=== PATIENT | female | born 1965 | race Caucasian/White ===

== ENCOUNTER 2018-04-24 00:29 | Emergency (ER) | payer SELFPAY ==
[~2018-04-24] VITALS: Ht 172.7 cm; Wt 59.5 kg
[~2018-04-24 00:29] MED LIST: DILA4TAB10 PO; FIORTAB4 PO; OXYC15TA55 OR; PRED20 PO; VIST25CA PO; XANA2TAB2 PO; [UNRECOGNIZED DRUG - CODE] PO
[2018-04-24 00:33] VITALS: BP 120/71; PULSE 102; RESP 20; TEMP 97.6; O2SAT 93
[2018-04-24 00:45] VITALS: RESP 18; O2SAT 95
[2018-04-24] MEDS ORDERED: SODIUM CHLORID 0.9% 500 ML INJ 500 ML IV ONE (01:15)
[2018-04-24] MEDS ORDERED: SODIUM CHLORIDE 0.9% FLUSH 10 ML FLUSH IV FLUSH PRN (01:15)
--- NOTE | 2018-04-24 01:27 | RADRPT ---
EXAM DATE: 04/24/2018 1:18 AM EDT AGE/SEX: 52 years / Female INDICATIONS: Cough with right side chest pain. CLINICAL DATA: This is the patient's initial encounter. Patient reports that signs and symptoms have been present for 4 - 6 months and indicates a pain score of 4/10. MEDICAL/SURGICAL HISTORY: Chronic obstructive pulmonary disease. Endocarditis. None. COMPARISON: No prior exams available for comparison. FINDINGS: Single AP view of the chest. The lungs are clear. Cardiomediastinal silhouette within nor mal limits. No evidence of pleural effusion or pneumothorax. CONCLUSION: No acute cardiopulmonary disease identified. Electronically signed by: Jem Hernandez MD 04/24/2018 1:26 AM EDT
--- NOTE | 2018-04-24 01:53 | PD ---
HPI Chief Complaint: Cold / Flu Symptoms Time Seen by Provider: 01:05 Travel History International Travel<30 days: No Contact w/Intl Traveler<30days: No Traveled to known affect area: No History of Present Illness HPI 52-year-old female presents to the emergency department by private transport patient complaint of right-sided abdominal pain and flank pain. Patient states she has not felt well since October when she was diagnosed reportedly with pneumonia. Patient has had at least 2 bouts of respiratory illness and one bout of urinary tract infection in the last 6 months. Patient does not have a primary care provider but goes to family member provider's offices to request antibiotic medication as well as Neurontin for chronic pain syndrome. Patient states she has history of previous neck injury at age 17 COPD bronchitis for numerous years. Patient does continue to smoke cigarettes. Patient most recently has had urinary tract infection symptoms and has used [id number] food supplement to combat possible urinary tract infection. Patient's had subjective and objective fever and chills. Patient states continues to have right-sided abdominal pain and flank pain. No report of dysuria frequency urgency hematuria or kidney stones. Due to overall generalized fatigue decided follicle to the emergency room for evaluation. Family at bedside encouraged her to come as well reportedly. No exacerbating or alleviating factors. PFSH Past Medical History Narrative Medical COPD endocarditis cervical cancer GERD chronic neck and back pain migraine ectopic ovarian cyst MRSA skin infection partial hysterectomy; tobacco use; nursing notes reviewed Cancer: Yes (CERVICAL (NO CHEMO OR RAD)) Cardiovascular Problems: Yes (ENDOCARDITIS, DIAGNOSED 2003) COPD: Yes Diminished Hearing: No Endocrine: No Gastrointestinal Disorders: Yes (GERD) GERD: Yes Genitourinary: Yes Immune Disorder: No Implanted Vascular Access Dvce: No Musculoskeletal: Yes (CHRONIC NECK & LOW BACK PAIN) Neurologic: Yes Psychiatric: No Reproductive: No Respiratory: Yes Integumentary: Yes (HX MRSA) Immunizations Current: Yes Migraines: Yes Tetanus Vaccination: > 5 Years Influenza Vaccination: No ?: Not Menopausal: Yes Ectopic : Yes Ovarian Cysts: Yes Past Surgical History Abdominal Surgery: No Cardiac Surgery: No Ear Surgery: No Endocrine Surgery: No Eye Surgery: No Genitourinary Surgery: No Gynecologic Surgery: Yes (PARTIAL HYST) Hysterectomy: Yes (PARTIAL FOR CERVICAL CA AGE 17) Neurologic Surgery: No Oral Surgery: No Thoracic Surgery: No Other Surgery: Yes Social History Alcohol Use: No Tobacco Use: Yes (1 PPD x30 YEARS) Substance Use: No Allergies-Medications (Allergen,Severity, Reaction): Coded Allergies: erythromycin base (Unverified Allergy, Severe, HIVES, SOB, 04/24/18) vancomycin (Verified Allergy, Severe, Hives, 04/24/18) Reported Meds & Prescriptions Reported Meds & Active Scripts Active Proair Hfa 8.5 GM Inh (Albuterol Sulfate) 90 Mcg/Act Aer 2 Puff INH Q4-6H PRN 108 mcg/actuation Pyridium (Phenazopyridine HCl) 100 Mg Tab 100 Mg PO Q8H PRN Keflex (Cephalexin) 500 Mg Capsule 500 Mg PO Q6H 10 Days Reported Diazepam 10 Mg Tab 10 Mg PO BID Neurontin (Gabapentin) 300 Mg Cap 300 Mg PO TID Review of Systems Except as stated in HPI: all other systems reviewed are Neg General / Constitutional: Positive: Fever, Chills HENT: Positive: Congestion Cardiovascular: No: Chest Pain or Discomfort Respiratory: Positive: Cough, No: Shortness of Breath Gastrointestinal: Positive: Nausea, Abdominal Pain, No: Vomiting, Diarrhea Genitourinary: Positive: Dysuria Musculoskeletal: No: Myalgias, Arthralgias Skin: No Rash Neurologic: No: Weakness Psychiatric: No: Anxiety Hematologic/Lymphatic: No: Easy Bruising Physical Exam Narrative GENERAL: Well-developed well-nourished female in no apparent distress no respiratory distress SKIN: Warm and dry. HEAD: Normocephalic. EYES: No scleral icterus. No injection or drainage. NECK: Supple, trachea midline. No JVD or lymphadenopathy. CARDIOVASCULAR: Regular rate and rhythm without murmurs, gallops, or rubs. RESPIRATORY: Breath sounds equal bilaterally. No accessory muscle use. GASTROINTESTINAL: Abdomen soft, non-tender, nondistended. MUSCULOSKELETAL: No cyanosis, or edema. BACK: Nontender without obvious deformity. No CVA tenderness. Data Data Last Documented VS Vital Signs Date Time Temp Pulse Resp B/P (MAP) Pulse Ox O2 Delivery O2 Flow Rate FiO2 04/24/18 02:37 92 18 122/74 (90) 96 Room Air 04/24/18 00:33 97.6 Orders Orders Complete Blood Count With Diff (04/24/18 01:03) Comprehensive Metabolic Panel (04/24/18 01:03) Lipase (04/24/18 01:03) Lactic Acid (04/24/18 01:03) Urinalysis - C+S If Indicated (04/24/18 01:03) Ct Abd/Pel W Iv Contrast(Rout) (04/24/18 01:03) Iv Access Insert/Monitor (04/24/18 01:03) Ecg Monitoring (04/24/18 01:03) Oximetry (04/24/18 01:03) Sodium Chloride 0.9% Flush (Ns Flush) (04/24/18 01:15) Chest, Single Ap (04/24/18 01:03) Sodium Chlorid 0.9% 500 Ml Inj (Ns 500 M (04/24/18 01:15) Magnesium (Mg) (04/24/18 01:03) Urine Culture (04/24/18 01:45) Ceftriaxone Inj (Rocephin Inj) (04/24/18 02:15) Ketorolac Inj (Toradol Inj) (04/24/18 02:15) Iohexol 350 Inj (Omnipaque 350 Inj) (04/24/18 02:30) Labs Laboratory Tests Test 04/24/18 01:45 White Blood Count 8.8 TH/MM3 Red Blood Count 5.30 MIL/MM3 Hemoglobin 14.7 GM/DL Hematocrit 45.4 % Mean Corpuscular Volume 85.7 FL Mean Corpuscular Hemoglobin 27.7 PG Mean Corpuscular Hemoglobin Concent 32.3 % Red Cell Distribution Width 12.2 % Platelet Count 398 TH/MM3 Mean Platelet Volume 7.6 FL Neutrophils (%) (Auto) 62.6 % Lymphocytes (%) (Auto) 24.4 % Monocytes (%) (Auto) 4.6 % Eosinophils (%) (Auto) 7.9 % Basophils (%) (Auto) 0.5 % Neutrophils # (Auto) 5.5 TH/MM3 Lymphocytes # (Auto) 2.2 TH/MM3 Monocytes # (Auto) 0.4 TH/MM3 Eosinophils # (Auto) 0.7 TH/MM3 Basophils # (Auto) 0.0 TH/MM3 CBC Comment DIFF FINAL Differential Comment Urine Color YELLOW Urine Turbidity SLIGHTY CLOUDY Urine pH 6.5 Urine Specific [place] LESS/EQUAL 1.005 Urine Protein NEG mg/dL Urine Glucose (UA) NEG mg/dL Urine Ketones NEG mg/dL Urine Occult Blood NEG Urine Nitrite POS Urine Bilirubin NEG Urine Urobilinogen 0.2 MG/DL Urine Leukocyte Esterase MOD Urine RBC 0-3 /hpf Urine WBC 20-24 /hpf Urine Squamous Epithelial Cells 6-8 /hpf Urine Bacteria MANY /hpf Microscopic Urinalysis Comment CULTURE INDICATED Blood Urea Nitrogen 11 MG/DL Creatinine 1.00 MG/DL Random Glucose 91 MG/DL Total Protein 9.1 GM/DL Albumin 3.1 GM/DL Calcium Level 8.9 MG/DL Magnesium Level 2.5 MG/DL Alkaline Phosphatase 96 U/L Aspartate Amino Transf (AST/SGOT) 20 U/L Alanine Aminotransferase (ALT/SGPT) 28 U/L Total Bilirubin 0.3 MG/DL Sodium Level 136 MEQ/L Potassium Level 3.5 MEQ/L Chloride Level 99 MEQ/L Carbon Dioxide Level 30.5 MEQ/L Anion Gap 7 MEQ/L Estimat Glomerular Filtration Rate 59 ML/MIN Lactic Acid Level 1.1 mmol/L Lipase 92 U/L MDM Medical Decision Making Medical Screen Exam Complete: Yes Emergency Medical Condition: Yes Medical Record Reviewed: Yes Interpretation(s) CBC & BMP Diagram 04/24/18 01:45 Total Protein 9.1 H, Albumin 3.1 L, Calcium Level 8.9, Magnesium Level 2.5, Alkaline Phosphatase 96, Aspartate Amino Transf (AST/SGOT) 20, Alanine Aminotransferase (ALT/SGPT) 28, Total Bilirubin 0.3 Vital Signs Date Time Temp Pulse Resp B/P (MAP) Pulse Ox O2 Delivery O2 Flow Rate FiO2 04/24/18 00:45 18 95 Room Air 04/24/18 00:45 18 95 Room Air 04/24/18 00:33 97.6 102 20 120/71 (87) 93 Lactic acid: 1.1, not elevated UA: Positive nitrites positive leukocyte esterase positive WBCs positive bacteria; cultures indicated Last Impressions Chest X-Ray 04/24/18102 Signed Impressions: CONCLUSION: No acute cardiopulmonary disease identified. Abdomen/Pelvis CT 04/24/18102 Signed Impressions: CONCLUSION: 1. Mild diffuse intrahepatic and extrahepatic biliary ductal prominence. 2. Moderate splenomegaly. Differential Diagnosis Abdominal pain, biliary colic, UTI, renal colic, colitis, diverticulitis, atypical appendicitis, musculoskeletal pain, rib fracture, pneumonia Narrative Course IV access obtained specimens collected and sent for resulting CBC with automated differential values are in normal range complete metabolic panel values are normal range lactic acid is not elevated at 1.1 urinalysis is abnormal with positive nitrites positive leukocyte Estrace positive white blood cells and positive bacteria Patient will be administered one-time dose of Rocephin 1 g IV as well as Toradol 30 mg IV chest x-ray reveals no lobar infiltrate patient will be given a one-time DuoNeb treatment for history of COPD no evidence for pneumonia at this time and CT abdomen pelvis remains pending. Patient declined updraft Patient with family at bedside informed of imaging results including CT which showed some mild ductal dilatation prominence and encouraged to follow-up as an outpatient with primary care provider with ultrasound study and further evaluation of liver. Patient is aware that she has an abnormal urinalysis and will need to complete course of antibiotic as well as no other acute findings on CT per reading radiologist except mildly prominent spleen. Patient is content with imaging results lab results and management and is aware of need for completing her antibiotic and ongoing outpatient follow-up. Patient is stable for outpatient management at this time. Diagnosis Primary Impression: UTI (urinary tract infection) Qualified Codes: N30.00 - Acute cystitis without hematuria Additional Impressions: COPD (chronic obstructive pulmonary disease) Abnormal liver CT Referrals: [facility] Patient Instructions: General Instructions Additional Instructions: Complete course of antibiotic as prescribed Follow-up with [facility] for primary care provider Return to the emergency department for any concerns or change in condition Monitor temperature for fever take acetaminophen/Tylenol every 4 hours for fever 100.4F or greater May take ibuprofen/Advil/Motrin 600 mg as often as every 6-8 hours as needed for fever 100.4F or greater or for pain associated with inflammation Med/Other Pt SpecificInfo: Prescription(s) given Scripts Albuterol 8.5 GM Inh (Proair Hfa 8.5 GM Inh) 90 Mcg/Act Aer 2 PUFF INH Q4-6H Y for SHORTNESS OF BREATH, #1 INHALER 0 Refills 108 mcg/actuation Prov: Cele Galindo MD 04/24/18 Phenazopyridine (Pyridium) 100 Mg Tab 100 MG PO Q8H Y for DYSURIA, #6 TAB 0 Refills Prov: Cele Galindo MD 04/24/18 Cephalexin (Keflex) 500 Mg Capsule 500 MG PO Q6H for Infection for 10 Days, #40 CAP 0 Refills Prov: Cele Galindo MD 04/24/18 Disposition: 01 DISCHARGE HOME Condition: Stable Ceel Galindo MD Apr 24, 2018 01:53
[2018-04-24 01:54] LABS: BILIRUBIN, URINE NEG (NEG); BLOOD, URINE NEG (NEG); GLUCOSE,URINE NEG (NEG); KETONE, URINE NEG (NEG); NITRITE,URINE POS (NEG); PH, URINE 6.5 (5.0-8.5); URINE COLOR YELLOW (YELLW/STRAW); URINE LEUKOCYTE ESTERASE MOD (NEG)
[2018-04-24 01:55] LABS: AUTOMATED NEUTROPHIL # 5.5 TH/MM3 (1.8-7.7); BASOPHIL % 0.5 % (0.0-2.0); EOSINOPHIL # 0.7 TH/MM3 (0-0.4); EOSINOPHIL % 7.9 % (0.0-4.0); HEMATOCRIT 45.4 % (35.0-46.0); HEMOGLOBIN 14.7 GM/DL (11.6-15.3); LYMPH % 24.4 % (9.0-44.0); LYMPHOCYTE # 2.2 TH/MM3 (1.0-4.8); MEAN CELL VOLUME 85.7 FL (80.0-100.0); MEAN CORPUSCULAR HEMOGLOBIN 27.7 PG (27.0-34.0); MEAN CORPUSCULAR HGB CONC 32.3 % (32.0-36.0); MEAN PLATELET VOLUME 7.6 FL (7.0-11.0); MONO % 4.6 % (0.0-8.0); MONOCYTE # 0.4 TH/MM3 (0-0.9); NEUT % 62.6 % (16.0-70.0); PLATELET COUNT 398 TH/MM3 (150-450); RED CELL DISTRIBUTION WIDTH 12.2 % (11.6-17.2); WHITE BLOOD COUNT 8.8 TH/MM3 (4.0-11.0)
[2018-04-24] MEDS ORDERED: DIAZ10TA PO (02:00)
[2018-04-24] MEDS ORDERED: NEUR300C PO (02:00)
[2018-04-24 02:04] LABS: CHLORIDE 99 MEQ/L (98-107); SODIUM (NA) 136 MEQ/L (136-145)
[2018-04-24 02:05] LABS: BACTERIA, URINE MANY /hpf; RBC, URINE 0-3 /hpf (0-3)
[2018-04-24 02:08] LABS: ALBUMIN 3.1 GM/DL (3.4-5.0); BICARBONATE 30.5 MEQ/L (21.0-32.0); BLOOD UREA NITROGEN 11 MG/DL (7-18); CALCIUM 8.9 MG/DL (8.5-10.1); GLUCOSE,RANDOM 91 MG/DL (74-106); MAGNESIUM 2.5 MG/DL (1.5-2.5)
[2018-04-24 02:11] LABS: ALT (GPT) 28 U/L (10-53); AST (GOT) 20 U/L (15-37); GLOMERULAR FILTRATION RATE 59 ML/MIN (>89)
[2018-04-24 02:13] LABS: TOTAL BILIRUBIN ADULT 0.3 MG/DL (0.2-1.0); TOTAL PROTEIN 9.1 GM/DL (6.4-8.2)
[2018-04-24 02:14] LABS: ALKALINE PHOSPHATASE 96 U/L (45-117)
[2018-04-24] MEDS ORDERED: cefTRIAXone INJ 1,000 MG in SODIUM CHLORIDE 0.9% INJ 100 ML IV ONE (02:15)
[2018-04-24] MEDS ORDERED: KETOROLAC TROMETHAMINE 30 MG/ML (IVP) VIAL IV PUSH ONE (02:15)
[2018-04-24] MEDS ORDERED: PHEN0.4T PO (02:19)
[2018-04-24] MEDS ORDERED: CEPH-460 PO (02:19)
[2018-04-24] MEDS ORDERED: ALBUAER3 INH (02:21)
[2018-04-24] MEDS ORDERED: IOHEXOL 350 MG/ML 10 ML VIAL (for RAD DIAG) IVCONTRAST ONE (02:30)
[2018-04-24 02:37] VITALS: BP 122/74; PULSE 92; RESP 18; O2SAT 96
--- NOTE | 2018-04-24 02:54 | RADRPT ---
EXAM DATE: 04/24/2018 2:42 AM EDT AGE/SEX: 52 years / Female INDICATIONS: Right side abdominal and flank pain. CLINICAL DATA: This is the patient's initial encounter. Patient reports that signs and symptoms have been present for 1 day and indicates a pain score of 4/10. MEDICAL/SURGICAL HISTORY: Carcinoma, cervical. Gastroesophageal reflux disease. Chronic obstr uctive pulmonary disease. Ovarian cysts, endocarditis. Hysterectomy. ORAL CONTRAST: No oral contrast ingested. RADIATION DOSE: 6.03 CTDI (mGy) COMPARISON: No prior exams available for comparison. TECHNIQUE: Multiple contiguous axial images were obtained through the abdomen and pelvis following b olus infusion of 95 ml Omnipaque 350 (iohexol) nonionic water-soluble contrast as a single exam dos e. No oral contrast ingested. Using automated exposure control and adjustment of the mA and/or kV ac cording to patient size, the radiation dose was kept as low as reasonably achievable to obtain optima l diagnostic quality images. FINDINGS: Lower Lungs: The visualized lower lungs are clear. Liver: Mild diffuse intrahepatic biliary ductal prominence. Common duct measures 6 to 7 mm in diamete r diffusely. Spleen: Enlarged measuring 15.9 cm in craniocaudal dimension. No focal mass identified. Pancreas: Unremarkable without mass or calcification. Kidneys: Normal in size and shape. No evidence of mass or hydronephrosis. Adrenal Glands: Unremarkable. Aorta: Aortic calcification. Diameter within normal limits. Bowel/Mesentery: No evidence of bowel dilatation. No free air or free fluid. Appendix within normal limits. Abdominal Wall: Intact. Retroperitoneum: No evidence of adenopathy in the retrocrural, para-aortic, or deep pelvic regions. Bladder: Contours are smooth. Reproductive Organs: No abnormal masses or calcifications seen. Inguinal: The inguinal region is unremarkable without evidence of adenopathy. Bony Structures: Unremarkable. CONCLUSION: 1. Mild diffuse intrahepatic and extrahepatic biliary ductal prominence. 2. Moderate splenomegaly. Electronically signed by: Jem Hernandez MD 04/24/2018 2:53 AM EDT
== END 2018-04-24 03:11 | disposition home or self-care (01) ==
LOC: PHED 00:29
DX: N39.0 Urinary tract infection, site not specified (principal); B96.20 Unspecified Escherichia coli [E. coli] as the cause of diseases classified elsewhere; J44.9 Chronic obstructive pulmonary disease, unspecified; R93.2 Abnormal findings on diagnostic imaging of liver and biliary tract; R16.1 Splenomegaly, not elsewhere classified; K21.9 Gastro-esophageal reflux disease without esophagitis; F17.200 Nicotine dependence, unspecified, uncomplicated; Z79.899 Other long term (current) drug therapy; Z88.1 Allergy status to other antibiotic agents
CPT/HCPCS: 71045; 74177; 80053; 81001; 83605; 83690; 83735; 85025; 87077; 87086; 87186; 96361; 96365; 96375; 99285; J0696; J1885; J7040; Q9967